=== PATIENT | male | born 1995 | race African-American/Black ===

== ENCOUNTER 2022-09-13 23:46 | Emergency (ER) | payer SELFPAY | END 2022-09-14 00:12 | disposition home or self-care (01) | LOC: CSHERS 23:46 | DX: H66.91 Otitis media, unspecified, right ear (principal); F17.210 Nicotine dependence, cigarettes, uncomplicated | CPT/HCPCS: 99283 ==

== ENCOUNTER 2022-10-26 01:07 | Emergency (ER) | payer SELFPAY ==
[2022-10-26] MEDS ORDERED: Dexamethasone 10 MG/ML VIAL ONE (01:56)
[2022-10-26 03:04] LABS: SARS-CoV-2 NAA Rapid Test Not Detected (NotDetected)
== END 2022-10-26 02:04 | disposition home or self-care (01) ==
LOC: CSHERS 01:07
DX: J02.8 Acute pharyngitis due to other specified organisms (principal); Z20.822 Contact with and (suspected) exposure to COVID-19; Z87.891 Personal history of nicotine dependence
CPT/HCPCS: 87081; 87430; 99283; J1100

== ENCOUNTER 2024-09-12 17:28 | Emergency (ER) | payer SELFPAY | END 2024-09-12 18:51 | disposition home or self-care (01) | LOC: CSHERS 17:28 | DX: M25.512 Pain in left shoulder (principal); F17.200 Nicotine dependence, unspecified, uncomplicated | CPT/HCPCS: 99283 ==